=== PATIENT | male | born 1955 | race Caucasian/White ===

== ENCOUNTER 2018-05-24 08:53 | Outpatient (CLI) | payer OTHER ==
[2018-05-24 18:01] LABS: BUN - BLOOD UREA NITROGEN 17 mg/dL (6-20); CALCIUM 8.7 mg/dL (8.5-10.3); CARBON DIOXIDE - CO2 27 mmol/L (21-32); CHLORIDE 101 mmol/L (101-111); CHOL/HDL RATIO 7.9 (<5.0); CHOLESTEROL 253 mg/dL; CREATININE 0.9 mg/dL (0.6-1.2); GFR - MDRD 85 (>89); GLUCOSE 93 mg/dL (70-100); HDL CHOLESTEROL 32 mg/dL; LDL CHOLESTEROL,CALCULATED 199 mg/dL; LDL/HDL RATIO 6.2 (<3.6); SODIUM 136 mmol/L (135-145); VLDL CHOLESTEROL 22 mg/dL
[2018-05-24 18:13] LABS: HB2 TOTAL 15.8 g/dL; HEMOGLOBIN A1C 0.55 g/dL; HEMOGLOBIN A1C % 5.3 % (4.6-6.2)
== END 2018-05-24 08:54 | disposition home or self-care (01) ==
LOC: LAB.F 08:53
PROVIDERS: ATTEND Internal Medicine
DX: Z00.00 Encounter for general adult medical examination without abnormal findings (principal)
CPT/HCPCS: 36415; 80048; 80061; 83036; 83721; 84153

== ENCOUNTER 2018-12-15 08:52 | Outpatient (CLI) | payer OTHER ==
[2018-12-15 12:38] LABS: ALBUMIN/GLOBULIN RATIO 1.1 (1.0-2.2); ALKALINE PHOSPHATASE 73 IU/L (42-121); ALT ALANINE AMINOTRANSFERASE 24 IU/L (10-60); AST ASPARTATE AMINOTRANSFERASE 22 IU/L (10-42); BUN - BLOOD UREA NITROGEN 16 mg/dL (6-20); CALCIUM 9.1 mg/dL (8.5-10.3); CARBON DIOXIDE - CO2 26 mmol/L (21-32); CHLORIDE 101 mmol/L (101-111); CHOL/HDL RATIO 6.1 (<5.0); CHOLESTEROL 224 mg/dL; GFR - MDRD 75 (>89); GLUCOSE 106 mg/dL (70-100); HDL CHOLESTEROL 37 mg/dL; LDL CHOLESTEROL,CALCULATED 162 mg/dL; LDL/HDL RATIO 4.4 (<3.6); SODIUM 136 mmol/L (135-145); TOTAL PROTEIN 7.5 g/dL (6.7-8.2); VLDL CHOLESTEROL 25 mg/dL
[2018-12-15 12:45] LABS: PSA FREE 0.4 ng/mL (0.16-2.81); PSA TOTAL 3.76 ng/mL (0.000-2.000)
== END 2018-12-15 08:53 | disposition home or self-care (01) ==
LOC: LAB.F 08:52
PROVIDERS: ATTEND Internal Medicine
DX: E78.5 Hyperlipidemia, unspecified (principal); R97.20 Elevated prostate specific antigen [PSA]
CPT/HCPCS: 36415; 80053; 80061; 83721; 84153; 84154

== ENCOUNTER 2019-08-24 08:53 | Outpatient (CLI) | payer OTHER ==
[2019-08-24 17:38] LABS: PSA FREE 0.48 ng/mL (0.16-2.81)
[2019-08-24 17:39] LABS: PSA TOTAL 3.52 ng/mL (0.000-2.000)
[2019-08-24 17:43] LABS: ALBUMIN 4.3 g/dL (3.2-5.5); ALBUMIN/GLOBULIN RATIO 1.3 (1.0-2.2); ALKALINE PHOSPHATASE 72 IU/L (42-121); ALT ALANINE AMINOTRANSFERASE 33 IU/L (10-60); AST ASPARTATE AMINOTRANSFERASE 26 IU/L (10-42); BILIRUBIN,TOTAL 1.2 mg/dL (0.2-1.0); BUN - BLOOD UREA NITROGEN 13 mg/dL (6-20); CALCIUM 8.9 mg/dL (8.5-10.3); CARBON DIOXIDE - CO2 26 mmol/L (21-32); CHLORIDE 102 mmol/L (101-111); CHOL/HDL RATIO 3.2 (<5.0); CHOLESTEROL 121 mg/dL; CK- CREATINE KINASE 117 IU/L (22-269); CREATININE 0.9 mg/dL (0.6-1.2); GFR - MDRD 85 (>89); GLUCOSE 111 mg/dL (70-100); HDL CHOLESTEROL 38 mg/dL; LDL CHOLESTEROL,CALCULATED 71 mg/dL; LDL CHOLESTEROL,DIRECT 71 mg/dL; LDL/HDL RATIO 1.9 (<3.6); SODIUM 136 mmol/L (135-145); TOTAL PROTEIN 7.7 g/dL (6.7-8.2); VLDL CHOLESTEROL 12 mg/dL
== END 2019-08-24 08:54 | disposition home or self-care (01) ==
LOC: LAB.S 08:53
PROVIDERS: ATTEND Internal Medicine Cardiovascular Disease
DX: I25.10 Atherosclerotic heart disease of native coronary artery without angina pectoris (principal); E78.5 Hyperlipidemia, unspecified; G62.9 Polyneuropathy, unspecified; N40.1 Benign prostatic hyperplasia with lower urinary tract symptoms; N13.8 Other obstructive and reflux uropathy
CPT/HCPCS: 36415; 80053; 80061; 82550; 82607; 83721; 84153; 84154

== ENCOUNTER 2020-09-04 11:00 | Outpatient (CLI) | payer MEDICARE, OTHER ==
[2020-09-04 14:57] LABS: BASOPHILS # (AUTO) 0.1 10^3/uL (0.0-0.1); BASOPHILS % (AUTO) 1.1 %; EOSINOPHILS # (AUTO) 0.3 10^3/uL (0.0-0.7); EOSINOPHILS % (AUTO) 4.7 %; HGB - HEMOGLOBIN 14.8 g/dL (14.0-18.0); LYMPHOCYTES # (AUTO) 1.5 10^3/uL (1.5-3.5); LYMPHOCYTES % (AUTO) 28.8 %; MEAN CORPUSCULAR HEMOGLOBIN 31.7 pg (27.0-31.0); MEAN CORPUSCULAR HGB CONC 32.9 g/dL (32.0-36.0); MEAN CORPUSCULAR VOLUME 96.4 fL (80.0-94.0); MEAN PLATELET VOLUME 10.2 fL (7.4-11.4); MONOCYTES # (AUTO) 0.4 10^3/uL (0.0-1.0); MONOCYTES % (AUTO) 7.7 %; NEUTROPHILS # (AUTO) 3.1 10^3/uL (1.5-6.6); NEUTROPHILS % (AUTO) 57.3 %; PLT - PLATELET COUNT 179 10^3/uL (130-450); RED BLOOD COUNT 4.67 10^6/uL (4.70-6.10); RED CELL DISTRIBUTION WIDTH 12.4 % (12.0-15.0); WHITE BLOOD COUNT 5.4 x10^3/uL (4.8-10.8)
[2020-09-04 15:11] LABS: ALBUMIN 4.2 g/dL (3.2-5.5); ALBUMIN/GLOBULIN RATIO 1.3 (1.0-2.2); ALKALINE PHOSPHATASE 73 IU/L (42-121); ALT ALANINE AMINOTRANSFERASE 36 IU/L (10-60); AST ASPARTATE AMINOTRANSFERASE 26 IU/L (10-42); BILIRUBIN,TOTAL 1.4 mg/dL (0.2-1.0); BUN - BLOOD UREA NITROGEN 13 mg/dL (6-20); CALCIUM 9.1 mg/dL (8.5-10.3); CARBON DIOXIDE - CO2 27 mmol/L (21-32); CHLORIDE 103 mmol/L (101-111); CHOL/HDL RATIO 3.5 (<5.0); CHOLESTEROL 114 mg/dL; CREATININE 0.9 mg/dL (0.6-1.2); GFR - MDRD 85 (>89); GLUCOSE 108 mg/dL (70-100); HDL CHOLESTEROL 33 mg/dL; LDL CHOLESTEROL,CALCULATED 65 mg/dL; POTASSIUM 4.1 mmol/L (3.5-5.0); SODIUM 137 mmol/L (135-145); TOTAL PROTEIN 7.4 g/dL (6.7-8.2); TRIGLYCERIDES 81 mg/dL; VLDL CHOLESTEROL 16 mg/dL
[2020-09-04 15:17] LABS: PSA FREE 0.41 ng/mL (0.16-2.81)
[2020-09-04 15:18] LABS: PSA TOTAL 4.32 ng/mL (0.000-2.000)
== END 2020-09-04 11:01 | disposition home or self-care (01) ==
LOC: LAB.S 11:00
PROVIDERS: ATTEND Internal Medicine
DX: E78.5 Hyperlipidemia, unspecified (principal); I25.10 Atherosclerotic heart disease of native coronary artery without angina pectoris; G62.9 Polyneuropathy, unspecified; N40.1 Benign prostatic hyperplasia with lower urinary tract symptoms
CPT/HCPCS: 36415; 80053; 80061; 82607; 83721; 84153; 84154; 85025

== ENCOUNTER 2023-06-23 10:34 | Outpatient (CLI) | payer MEDICARE ==
[2023-06-23 15:17] LABS: BASOPHILS # (AUTO) 0.1 10^3/uL (0.0-0.1); BASOPHILS % (AUTO) 2.6 %; EOSINOPHILS # (AUTO) 0.3 10^3/uL (0.0-0.7); EOSINOPHILS % (AUTO) 8.9 %; HCT - HEMATOCRIT 43.7 % (42.0-52.0); HGB - HEMOGLOBIN 14.4 g/dL (14.0-18.0); LYMPHOCYTES # (AUTO) 1.4 10^3/uL (1.5-3.5); LYMPHOCYTES % (AUTO) 36.1 %; MEAN CORPUSCULAR HEMOGLOBIN 32.5 pg (27.0-31.0); MEAN CORPUSCULAR VOLUME 98.6 fL (80.0-94.0); MEAN PLATELET VOLUME 9.5 fL (7.4-11.4); MONOCYTES # (AUTO) 0.3 10^3/uL (0.0-1.0); MONOCYTES % (AUTO) 8.9 %; NEUTROPHILS # (AUTO) 1.6 10^3/uL (1.5-6.6); NEUTROPHILS % (AUTO) 43.2 %; PLT - PLATELET COUNT 190 10^3/uL (130-450); RED BLOOD COUNT 4.43 10^6/uL (4.70-6.10); RED CELL DISTRIBUTION WIDTH 12.5 % (12.0-15.0); WHITE BLOOD COUNT 3.8 x10^3/uL (4.8-10.8)
[2023-06-23 15:34] LABS: PSA TOTAL 6.44 ng/mL (0.000-2.000)
[2023-06-23 15:42] LABS: THYROID STIMULATING HORMONE 1.65 uIU/mL (0.34-5.60)
[2023-06-23 16:39] LABS: ALBUMIN 3.9 g/dL (3.2-5.5); ALBUMIN/GLOBULIN RATIO 1.3 (1.0-2.2); BILIRUBIN,TOTAL 0.5 mg/dL (0.2-1.0); CALCIUM 9.2 mg/dL (8.5-10.3); POTASSIUM 4.4 mmol/L (3.5-4.5); TOTAL PROTEIN 6.8 g/dL (6.4-8.9)
[2023-06-24 07:09] LABS: ESTRADIOL 19.5 pg/mL (7.6-42.6)
[2023-06-24 18:07] LABS: FREE TESTOSTERONE(DIRECT) 7.5 pg/mL (6.6-18.1)
== END 2023-06-23 10:35 | disposition home or self-care (01) ==
LOC: LAB.S 10:34
PROVIDERS: ATTEND Nurse Practitioner Acute Care
DX: E29.1 Testicular hypofunction (principal); N40.0 Benign prostatic hyperplasia without lower urinary tract symptoms; F41.9 Anxiety disorder, unspecified; F32.A Depression, unspecified
CPT/HCPCS: 36415; 80053; 82670; 83001; 83002; 84153; 84154; 84402; 84403; 84443; 85025

== ENCOUNTER 2023-06-30 09:54 | Outpatient (CLI) | payer MEDICARE ==
[2023-07-01 20:07] LABS: FREE TESTOSTERONE(DIRECT) 8.7 pg/mL (6.6-18.1)
== END 2023-06-30 09:55 | disposition home or self-care (01) ==
LOC: LAB.S 09:54
PROVIDERS: ATTEND Nurse Practitioner Acute Care
DX: E29.1 Testicular hypofunction (principal); N40.0 Benign prostatic hyperplasia without lower urinary tract symptoms; F41.9 Anxiety disorder, unspecified; F32.A Depression, unspecified
CPT/HCPCS: 36415; 84402; 84403

== ENCOUNTER 2023-08-02 11:03 | Outpatient (CLI) | payer MEDICARE ==
[~2023-08-02 11:03] MED LIST: GADOTERATE MEGLUMINE 10 MMOL/20 ML VIAL ONE
[2023-08-02 11:39] LABS: CREATININE 1.1 mg/dL (0.6-1.3)
--- NOTE | 2023-08-02 17:28 | MRI Report ---
PROCEDURE: Pelvis W/WO INDICATIONS: ELEVATED PSA CONTRAST: 18.8 cc clariscan TECHNIQUE: Coronal ultra fast SE, axial T1 FSE with fat saturation, 3-plane nonbreath-hold T2 FSE. After the ad ministration of contrast, dynamic axial, delayed axial and coronal ultra fast GE or 2-D spoiled GE wi th fat saturation through the pelvis. Optional diffusion weighted imaging and ADC may be performed. COMPARISON: None. FINDINGS: Image quality: Diffusion weighted and dynamic contrast enhanced images are diagnostic. Prostate: Gland size is 4.8 x 3.5 x 4.3 cm; ellipsoid gland volume is 38 mL. Prostate lesions: Lesion 1: Location: Peripheral zone at the apex, nearly periurethral, probably from the 1:00 to 7 position. Thi s is best seen on axial series 5 image 20 and coronal series 6 image 15.., Size: 2.4 cm. T2W signal: Hypointense, erased charcoal DWI signal: Markedly hyperintense ADC signal: Moderately hypointense Enhancement: Yes Extracapsular extension: Probable. Abnormal signal is quite close to the left neurovascular bundle at the apex and the capsule is indistinct, series 5 image 19. PI-RADS score: 5 Genitourinary system: Bladder wall thickness is normal. Distal ureters are non distended. Bowel and peritoneum: No pathologic free pelvic fluid. Inferior colon and small bowel loops are nor mal in caliber. Nodes and vessels: No pelvic or inguinal adenopathy by size criteria. Iliac vessels are normal in c aliber. Soft tissues: No inguinal hernias. Bones: Bone marrow demonstrates normal overall signal. No suspicious bony lesions. IMPRESSION: 1. 2.4 cm PI-RADS 5 lesion of the prostate apex likely involving the urethra and left neurovascular b undle. 2. No visible adenopathy or bone lesion. Reviewed by: Rebecca Marin MD on 08/02/2023 5:27 PM PST Approved by: Rebecca Marin MD on 08/02/2023 5:27 PM PST Station ID: [id number]
[2023-08-02] MEDS ORDERED: GADOTERATE MEGLUMINE 10 MMOL/20 ML VIAL IVP ONE (18:16)
== END 2023-08-02 11:04 | disposition home or self-care (01) ==
LOC: LAB 11:03
PROVIDERS: ATTEND Urology
DX: R97.20 Elevated prostate specific antigen [PSA] (principal); N42.89 Other specified disorders of prostate
CPT/HCPCS: 36415; 72197; 82565; A9575

== ENCOUNTER 2023-09-27 10:26 | Day surgery (SDC) | payer MEDICARE ==
[2023-09-27] MEDS: LACTATED RINGERS 1,000 ML IV ONE ×2 (10:32→12:52)
--- NOTE | 2023-09-27 12:02 | ANESTHESIA ---
Pre-Anesthesia VS, & Labs - Diagnosis Suspicious prostate lesion - Procedure PROSTATE BIOPSY Vital Signs: Temp Pulse Resp BP Pulse Ox O2 Flow Rate 36.5 C 65 15 128/80 97 09/27/23 10:54 09/27/23 10:54 09/27/23 10:54 09/27/23 10:54 09/27/23 10:54 Height: 6 ft Weight (kg): 101.2 kg Body Mass Index: 30.2 BMI Classification: Obese - NPO Last Fluid Intake: 1000 Last Food Intake: >8HR Home Medications and Allergies Home Medications: Ambulatory Orders Aspirin EC [Ecotrin] 81 mg PO DAILY 09/20/23 Rosuvastatin Calcium [Crestor] 10 mg PO DAILY 09/20/23 Aspirin EC [Ecotrin] 81 mg PO DAILY 09/20/23 Rosuvastatin Calcium [Crestor] 10 mg PO DAILY 09/20/23 Allergies/Adverse Reactions: Allergies Allergy/AdvReac Type Severity Reaction Status Date / Time hay fever AdvReac Unknown Uncoded 09/27/23 11:03 Anes History & Medical History - Anesthetic History Anesthesia Complications: reports: No previous complications Family history of Anesthesia Complications: Denies - Medical History Cardiovascular: reports: High cholesterol (2019, ONE STENT, CURRENTLY DOES VIGOROUS EXERCISE, NO CHEST PAIN), Coronary artery disease, [place] Pulmonary: reports: None, Sleep apnea Gastrointestinal: reports: None Urinary: reports: Benign prostate hypertrophy Musculoskeletal: reports: None Endocrine/Autoimmune: reports: None Skin: reports: Eczema, Psoriasis - Surgical History General: reports: Colonoscopy Cardiothoracic: reports: Coronary stent Results - EKG Results EKG Comparison: Reviewed EKG Exam General: Alert Dental: WNL Mouth Openin Fingerbreadth Neck Mobility: Normal Mallampati classification: II Thyromental Distance: 4-6 cm Plan Anesthesia Type: Total IV Consent for Procedure(s) Verified and Reviewed: Yes Code Status: Attempt Resuscitation ASA classification: 3-Severe systemic disease Is this case an emergency?: No
[2023-09-27] MEDS ORDERED: MORPHINE 2 MG/ML CARPUJECT IVP PRN (12:04)
[2023-09-27] MEDS ORDERED: ATROPINE ABBOJECT 1 MG/10 ML SYRINGE IVP PRN (12:04)
[2023-09-27] MEDS ORDERED: HYDROmorphone 0.5 MG/0.5 ML SYRINGE IVP PRN (12:04)
[2023-09-27] MEDS ORDERED: METOCLOPRAMIDE 10 MG/2 ML VIAL IVP PRN (12:04)
[2023-09-27] MEDS ORDERED: ONDANSETRON 4 MG/2 ML VIAL IVP PRN (12:04)
[2023-09-27] MEDS ORDERED: fentaNYL 100 MCG/2 ML VIAL IVP PRN (12:04)
[2023-09-27] MEDS ORDERED: ePHEDrine 50 MG/ML VIAL IVP PRN (12:04)
[2023-09-27] MEDS ORDERED: NALOXONE 0.4 MG/ML VIAL IVP PRN (12:04)
[2023-09-27] MEDS ORDERED: fentaNYL 100 MCG/2 ML VIAL ONE (12:20)
[2023-09-27] MEDS ORDERED: MIDAZOLAM 2 MG/2 ML VIAL ONE (12:20)
[2023-09-27] MEDS ORDERED: PROPOFOL 200 MG/20 ML VIAL IVP ONE (12:20)
[2023-09-27] MEDS ORDERED: LIDOCAINE-MPF 1% 30 ML VIAL ONE (12:24)
[2023-09-27] MEDS: LIDOCAINE 1% 50 ML MDV SUBQ ONE (12:40)
[2023-09-27] MEDS ORDERED: ePHEDrine 50 MG/ML VIAL IVP ONE (12:42)
--- NOTE | 2023-09-27 12:53 | Discharge Plan ---
Discharge Plan Problem Reviewed?: Yes Disposition: Home, Self Care Condition: Good Diet: Regular Activity Restrictions: No Restrictions Shower Restrictions: No Driving Restrictions: No Instruction Topics: Biopsy Ultrasound Transrectal Additional Instructions or Follow Up instructions: You will be contacted for follow-up in [address] Nilesh Mathur Smoking: If you smoke, Please STOP! Call for help.
--- NOTE | 2023-09-27 12:56 | OPERATIVE REPORT ---
Operative Report - General Procedure Date: 09/27/23 Planned Procedure: Transrectal ultrasound-guided prostate biopsy Pre-Op Diagnosis: Elevated PSA Procedure Performed: Transrectal ultrasound-guided prostate biopsy Post Op Diagnosis: Elevated PSA - Procedure Note Primary Surgeon: Nilesh Anesthesia Provider: JUANA Razo Anesthesia Technique: Moderate sedation Pathology: Routine prostate biopsies. An extra 2 cores taken from left apex Findings: Routine prostate biopsy, extra 2 cores taken from left apex Complications: none - Other Other Information/Narrative: After informed symptoms obtained the patient was brought to the OR and laid in the supine position. The patient was anesthetized per anesthesia protocols and then placed in the left lateral decubitus position with left side down. A timeout was performed reconfirming the patient, procedure and laterality. Transrectal ultrasound probe was placed per rectum. A block was given to the lateral aspect of the prostate with 5 cc of 1% lidocaine bilaterally. The prostate was measured at 33 cc. Using 18-gauge biopsy needle we obtained core samples from the base, mid, apex of the lateral and medial aspects of both the left and the right prostate. At the left apex at the area corresponding to the PI-RADS 5 lesion we obtained a total of 3 samples, sent in the same specimen container for the 3. This led to a total of 14 samples obtained. The probe was removed and no bleeding was noted. The patient tolerated the procedure well was brought to PACU without further incident. He will follow-up in 1 to 3 weeks time for pathology discussion
[2023-09-27] MEDS ORDERED: LACTATED RINGERS 1,000 ML IV SCH (13:00)
--- NOTE | 2023-09-27 13:11 | ANESTHESIA POST OP EVALUATION ---
Anesthesia Post Eval - Post Anesthesia Eval Vitals: Last Vital Signs Temp 36.4 C L 09/27/23 12:50 Pulse 61 09/27/23 12:50 Resp 12 09/27/23 12:50 BP 86/50 L 09/27/23 12:50 Pulse Ox 98 09/27/23 12:50 O2 Flow Rate CV Function Including HR & BP: Stable Pain Control: Satisfactory Nausea & Vomiting: Negative Mental Status: Baseline Respiratory Status: Airway Patent Hydration Status: Satisfactory Anesthesia Complications: None
[2023-09-27 13:37] VITALS: BP 121/73; O2SAT 95
== END 2023-09-27 10:27 | disposition home or self-care (01) ==
LOC: SDS 10:26
PROVIDERS: ATTEND Urology
PROC: 0VB07ZX Excision of Prostate, Via Natural or Artificial Opening, Diagnostic (ICD-10-PCS; principal; 2023-09-27 11:45)
DX: C61 Malignant neoplasm of prostate (principal); E66.9 Obesity, unspecified; Z68.30 Body mass index [BMI] 30.0-30.9, adult; I25.10 Atherosclerotic heart disease of native coronary artery without angina pectoris; I25.2 Old myocardial infarction; Z95.5 Presence of coronary angioplasty implant and graft; G47.30 Sleep apnea, unspecified
CPT/HCPCS: 55700; 76942; J7120